=== PATIENT | male | born 1940 | race Caucasian/White ===

== ENCOUNTER → 2018-10-05 | Outpatient (CLI) | payer MEDICARE, OTHER ==
[2018-10-05 15:09] LABS: Creatinine, Urine Random 45.7 mg/dL (27.00-270.00)
[2018-10-05 15:12] LABS: Microalb/Creat Ratio UR, Rand 48.14 mg/g (0.000-30.000)
== END ==
LOC: LAB SHORT 07:45 → LAB SRC 07:45
PROVIDERS: Hospitalist
DX: I10 Essential (primary) hypertension (principal); R73.09 Other abnormal glucose
CPT/HCPCS: 82043; 82570

== ENCOUNTER → 2019-01-05 | Outpatient (CLI) | payer MEDICARE, OTHER ==
[2019-01-05 15:17] LABS: Campylobacter Sp Not Detected (NOT DETECT); Enteroaggregative E. coli-EAEC Not Detected (NOT DETECT); Enterotoxigenic E. coli-ETEC Not Detected (NOT DETECT); Plesiomonas Shigelloides Not Detected (NOT DETECT); Salmonella Sp Not Detected (NOT DETECT); Vibrio Cholerae Not Detected (NOT DETECT); Vibrio Sp Not Detected (NOT DETECT); Yersinia Enterocolitica Not Detected (NOT DETECT)
[2019-01-05 15:18] LABS: Adenovirus F 40/41 Not Detected (NOT DETECT); Astrovirus Not Detected (NOT DETECT); Cryptosporidium Not Detected (NOT DETECT); Cyclospora Cayetanensis Not Detected (NOT DETECT); E. Coli O157 Not Detected (NOT DETECT); Entamoeba Histolytica Not Detected (NOT DETECT); Enteropathogenic E. coli-EPEC Not Detected (NOT DETECT); Giardia Lamblia Not Detected (NOT DETECT); Norovirus GI/GII Not Detected (NOT DETECT); Rotavirus A Not Detected (NOT DETECT); Sapovirus Not Detected (NOT DETECT); Shiga Toxin-prod E. coli-STEC Not Detected (NOT DETECT); Shigella/Enteroin E. coli-EIEC Not Detected (NOT DETECT)
== END | disposition home or self-care (01) ==
LOC: LAB SRC 07:45 → LAB SHORT 07:45 → LAB FUT 12-31 14:30
PROVIDERS: Student in an Organized Health Care Education/Training Program
DX: R19.7 Diarrhea, unspecified (principal)
CPT/HCPCS: 0097U

== ENCOUNTER 2019-02-15 11:35 | Day surgery (SDC) | payer MEDICARE, OTHER ==
[~2019-02-15] VITALS: Ht 180.3 cm; Wt 99.7 kg
[~2019-02-15 11:35] MED LIST: Advil200 M1; HYDCHL25; LISI20; METO25ER
--- NOTE | 2019-02-15 13:12 | NUR ---
02/15/19 1312 Sigrid Tamayo SIMETHICONE USED DURING PROCEDURE.
--- NOTE | 2019-02-15 14:26 | NUR ---
02/15/[address] INTO ROOM TO CONSULT WITH PATIENT AND SPOUSE. EXPLAINED FINDINGS OF PROCEDURE, USING PHOTOS AND DRAWING DIAGRAM FOR PATIENT & SPOUSE. AFTER LEFT, THIS RN HAD INDEPT CONVERSATION WITH PATIENT AND SPOUSE REGARDING FINDINGS, EXPLAINING & CLARIFYING EXPLANATION & ANSWERED QUESTIONS. PT AND SPOUSE VERBALIZED UNDERSTANDING. SPOUSE ASKED IF STOOL SOFTENER WOULD BE APPROPRIATE. THIS RN CLARIFIED WITH DR. JAIMES WHOM SAID IT WOULD NOT HURT OR HINDER PATIENT, BUT DOUBTS BENEFITS UNTIL MASS IS DEALT WITH. PT AND SPOUSE APPEAR CALM AND DENY FURTHER QUESTIONS OR NEEDS AT THIS TIME.
== END 2019-02-15 14:20 | disposition home or self-care (01) ==
LOC: ORSCSDS 11:35
PROVIDERS: Student in an Organized Health Care Education/Training Program
PROC: 0DBK8ZX Excision of Ascending Colon, Via Natural or Artificial Opening Endoscopic, Diagnostic (ICD-10-PCS; principal; 2019-02-15 13:00)
PROC: 0DBN8ZX Excision of Sigmoid Colon, Via Natural or Artificial Opening Endoscopic, Diagnostic (ICD-10-PCS; principal; 2019-02-15 13:00)
PROC: 0DBM8ZX Excision of Descending Colon, Via Natural or Artificial Opening Endoscopic, Diagnostic (ICD-10-PCS; principal; 2019-02-15 13:00)
DX: R19.7 Diarrhea, unspecified (principal); D12.2 Benign neoplasm of ascending colon; D12.4 Benign neoplasm of descending colon; D12.5 Benign neoplasm of sigmoid colon; K57.30 Diverticulosis of large intestine without perforation or abscess without bleeding; Z87.891 Personal history of nicotine dependence; Z79.899 Other long term (current) drug therapy
CPT/HCPCS: 88305; J2250; J2704; J7120

== ENCOUNTER → 2019-08-27 | Outpatient (CLI) | payer MEDICARE, OTHER ==
[2019-08-27 14:09] LABS: Prothrombin Time Results 40.8 Sec (9.7-11.5)
[2019-08-27 14:17] LABS: International Normalized Ratio 4.13
== END | disposition home or self-care (01) ==
LOC: LAB SHORT 09:40 → LAB SRC 09:40
PROVIDERS: Hospitalist
DX: I48.91 Unspecified atrial fibrillation (principal)
CPT/HCPCS: 85610

== ENCOUNTER 2020-08-22 12:39 | Day surgery (SDC) | payer OTHER ==
[~2020-08-22] VITALS: Ht 180.3 cm; Wt 103.1 kg
[2020-08-22] MEDS ORDERED: WARF5 (13:18)
[2020-08-22] MEDS ORDERED: SINEMET 25-1001 EAC1 (13:18)
[2020-08-22] MEDS ORDERED: METO100 (13:18)
[2020-08-22] MEDS ORDERED: LANOXIN125 MCG (13:19)
--- NOTE | 2020-08-22 14:23 | NUR ---
08/22/20 1422 Katarzyna Bradley PT UPDATED ON THE DELAY IN HIS START TIME DUE TO THE PREVIOUS CASE RUNNING LONGER THAN EXPECTED. BED IN LOW, LOCKED POSITION, CALL LIGHT IN REACH. CONT TO MONITOR.
--- NOTE | 2020-08-22 15:57 | NUR ---
08/22/20 1557 Katarzyna Bradley PT DOES NOT NEED TO BE MAC WITH ANESTHESIA FOR FUTURE PROCEDURES PER MD HOFFMAN. HE HAD NO TROUBLES WITH BP OR SEDATION.
== END 2020-08-22 16:32 | disposition home or self-care (01) ==
LOC: ORSCSDS 12:39
PROVIDERS: Student in an Organized Health Care Education/Training Program
PROC: 0DBK8ZX Excision of Ascending Colon, Via Natural or Artificial Opening Endoscopic, Diagnostic (ICD-10-PCS; principal; 2020-08-22 14:00)
PROC: 0DBP8ZX Excision of Rectum, Via Natural or Artificial Opening Endoscopic, Diagnostic (ICD-10-PCS; principal; 2020-08-22 14:00)
PROC: 0DBH8ZX Excision of Cecum, Via Natural or Artificial Opening Endoscopic, Diagnostic (ICD-10-PCS; principal; 2020-08-22 14:00)
PROC: 0DBM8ZX Excision of Descending Colon, Via Natural or Artificial Opening Endoscopic, Diagnostic (ICD-10-PCS; principal; 2020-08-22 14:00)
DX: Z85.038 Personal history of other malignant neoplasm of large intestine (principal); R15.9 Full incontinence of feces; D12.2 Benign neoplasm of ascending colon; D12.0 Benign neoplasm of cecum; D12.4 Benign neoplasm of descending colon; D12.8 Benign neoplasm of rectum; I48.91 Unspecified atrial fibrillation; I10 Essential (primary) hypertension; K21.9 Gastro-esophageal reflux disease without esophagitis; G20 Parkinson's disease; Z79.899 Other long term (current) drug therapy; Z79.01 Long term (current) use of anticoagulants; Z87.891 Personal history of nicotine dependence
CPT/HCPCS: 88305; 93005; 93010; J2704; J7120

== ENCOUNTER 2021-06-05 06:32 | Emergency (ER) | payer OTHER ==
[~2021-06-05] VITALS: Ht 180.3 cm; Wt 99.8 kg
[~2021-06-05 06:32] MED LIST changes: +LANOXIN125 MCG PO; -LISI20; +LISI20 PO; +METO100 PO; +SINEMET 25-1001 EAC1; +WARF5
[2021-06-05] MEDS ORDERED: FURO20 PO (07:22)
[2021-06-05] MEDS ORDERED: POTA10T PO (07:23)
[2021-06-05] MEDS ORDERED: Coumadin2 MG PO (07:27)
[2021-06-05 08:02] LABS: International Normalized Ratio 2.32; Prothrombin Time Results 23.1 Sec (9.7-11.5)
[2021-06-05 08:07] LABS: Alanine Aminotransfer (ALT/SGP 39 U/L (12-78); Albumin, Blood 3.5 g/dL (3.4-5.0); Albumin/Globulin Ratio 0.9 (0.8-1.8); Alk Phos 83 U/L (50-136); Anion Gap 8 mmol/L (6-16); Aspartate Aminotrans (AST/SGOT 44 U/L (12-37); Blood Urea Nitrogen 20 mg/dL (8-24); Bun/Creatinine Ratio 21.1 (12.0-20.0); CO2, Blood 24 mmol/L (21-32); Calcium, Blood 9.2 mg/dL (8.5-10.1); Chloride, Blood 105 mmol/L (98-108); Creatinine, Blood 0.95 mg/dL (0.60-1.20); Globulin, Blood 3.8 g/dL (2.2-4.0); Glomerular Filtration Rate >60 (60-); Glucose, Blood 144 mg/dL (70-99); Potassium, Blood 4.3 mmol/L (3.5-5.5); Sodium, Blood 137 mmol/L (136-145); Total Protein, Blood 7.3 g/dL (6.4-8.2)
[2021-06-05 08:09] LABS: BASOPHILS ABSOLUTE AUTO 0.05 K/mm3 (0.00-0.23); BASOPHILS PERCENT AUTO 1 % (0-2); EOSINOPHILS ABSOLUTE AUTO 0.13 K/mm3 (0.00-0.68); EOSINOPHILS PERCENT AUTO 1 % (0-6); Hematocrit 44.2 % (37.0-53.0); Hemoglobin 14.9 g/dL (13.5-17.5); IMMATURE GRAN ABSOLUTE AUTO 0.08 K/mm3 (0.00-0.10); IMMATURE GRAN PERCENT AUTO 1 % (0-1); LYMPHOCYTES ABSOLUTE AUTO 2.78 K/mm3 (0.84-5.20); LYMPHOCYTES PERCENT AUTO 28 % (21-46); MONOCYTES ABSOLUTE AUTO 0.86 K/mm3 (0.16-1.47); MONOCYTES PERCENT AUTO 9 % (4-13); Mean Corpuscular HGB 30.8 pg (26.0-34.0); Mean Corpuscular HGB Conc 33.7 g/dL (31.5-36.5); Mean Corpuscular Volume 91 fL (80-100); Mean Platelet Volume 10.5 fL (9.1-12.4); NEUTROPHILS ABSOLUTE AUTO 6.18 K/mm3 (1.96-9.15); NEUTROPHILS PERCENT AUTO 61 % (41-73); Platelet Count 200 K/mm3 (150-400); RDW Coefficient Variation 13.3 % (11.7-14.2); RDW Standard Deviation 44.9 fL (35.1-46.3); Red Blood Cell Count 4.84 M/mm3 (4.30-5.90); White Blood Cell Count 10.08 K/mm3 (4.00-11.30)
[2021-06-05 08:29] LABS: Digoxin (Lanoxin) 0.65 ug/mL (0.80-2.00)
== END 2021-06-05 10:13 | disposition home or self-care (01) ==
LOC: ER 06:32
PROVIDERS: Emergency Medicine; Student in an Organized Health Care Education/Training Program
DX: K62.5 Hemorrhage of anus and rectum (principal); I48.91 Unspecified atrial fibrillation; Z79.899 Other long term (current) drug therapy
CPT/HCPCS: 80053; 80162; 85025; 85610; 93005; 93010; 99283-25

== ENCOUNTER 2022-02-13 18:50 | Inpatient (IN) | payer OTHER ==
[~2022-02-13] VITALS: Ht 177.8 cm; Wt 94.4 kg
[~2022-02-13 18:50] MED LIST changes: +Coumadin2 MG PO; +FURO20 PO; +POTA10T PO
[2022-02-13 19:21] LABS: BASOPHILS ABSOLUTE AUTO 0.04 K/mm3 (0.00-0.23); BASOPHILS PERCENT AUTO 0 % (0-2); EOSINOPHILS PERCENT AUTO 1 % (0-6); Hematocrit 43.7 % (37.0-53.0); IMMATURE GRAN ABSOLUTE AUTO 0.27 K/mm3 (0.00-0.10); IMMATURE GRAN PERCENT AUTO 2 % (0-1); LYMPHOCYTES ABSOLUTE AUTO 1.56 K/mm3 (0.84-5.20); LYMPHOCYTES PERCENT AUTO 9 % (21-46); MONOCYTES ABSOLUTE AUTO 0.89 K/mm3 (0.16-1.47); MONOCYTES PERCENT AUTO 5 % (4-13); Mean Corpuscular HGB 30.5 pg (26.0-34.0); Mean Corpuscular HGB Conc 34.3 g/dL (31.5-36.5); Mean Corpuscular Volume 89 fL (80-100); Mean Platelet Volume 10.7 fL (9.1-12.4); NEUTROPHILS ABSOLUTE AUTO 14.64 K/mm3 (1.96-9.15); NEUTROPHILS PERCENT AUTO 84 % (41-73); Platelet Count 164 K/mm3 (150-400); RDW Coefficient Variation 13.2 % (11.7-14.2); RDW Standard Deviation 43.2 fL (35.1-46.3); Red Blood Cell Count 4.92 M/mm3 (4.30-5.90)
[2022-02-13 19:33] LABS: Albumin, Blood 2.9 g/dL (3.4-5.0); Albumin/Globulin Ratio 0.7 (0.8-1.8); Bilirubin, Total 1.9 mg/dL (0.1-1.0); Calcium, Blood 8.8 mg/dL (8.5-10.1); Creatinine, Blood 1.6 mg/dL (0.60-1.20); Total Protein, Blood 6.9 g/dL (6.4-8.2)
[2022-02-13 19:53] LABS: Influenza A, PCR NEGATIVE (NEGATIVE); Influenza B, PCR NEGATIVE (NEGATIVE); Resp Syncytial Virus, PCR NEGATIVE (NEGATIVE); SARS-Cov-2 (COVID-19) PCR, MMC NEGATIVE (NEGATIVE)
[2022-02-13 21:03] LABS: Source, Urine Straight Cath
[2022-02-13 21:09] LABS: Appearance, Urine Hazy (Clear); Bilirubin, Urine Neg (Neg); Blood, Urine 5+ (Neg); Color, Urine Yellow (P-Yellow); Glucose Qualitative, Urine Neg (Neg); Ketones, Urine 2+ (Neg); Leukocyte Esterase, Urine 3+ (Neg); Nitrite, Urine Pos (Neg); Protein, Urine 3+ (Neg); Specific Gravity, Urine 1.015 (1.003-1.022); Urobilinogen, Urine 1+ (Normal)
[2022-02-13 21:39] LABS: Bacteria Many /hpf; Squamous Epithelial Cells Rare /hpf (Few); White Blood Cells, Urine 25-50 /hpf (0-5)
[2022-02-14 00:17] LABS: International Normalized Ratio 3.69; Prothrombin Time Results 35.6 Sec (9.7-11.5)
[2022-02-14 06:28] LABS: BASOPHILS ABSOLUTE AUTO 0.03 K/mm3 (0.00-0.23); BASOPHILS PERCENT AUTO 0 % (0-2); EOSINOPHILS PERCENT AUTO 0 % (0-6); Hematocrit 39.6 % (37.0-53.0); Hemoglobin 13.4 g/dL (13.5-17.5); IMMATURE GRAN ABSOLUTE AUTO 0.13 K/mm3 (0.00-0.10); IMMATURE GRAN PERCENT AUTO 1 % (0-1); LYMPHOCYTES ABSOLUTE AUTO 0.96 K/mm3 (0.84-5.20); LYMPHOCYTES PERCENT AUTO 8 % (21-46); MONOCYTES ABSOLUTE AUTO 0.56 K/mm3 (0.16-1.47); MONOCYTES PERCENT AUTO 5 % (4-13); Mean Corpuscular HGB 30.1 pg (26.0-34.0); Mean Corpuscular HGB Conc 33.8 g/dL (31.5-36.5); Mean Corpuscular Volume 89 fL (80-100); Mean Platelet Volume 10.8 fL (9.1-12.4); NEUTROPHILS ABSOLUTE AUTO 10.86 K/mm3 (1.96-9.15); NEUTROPHILS PERCENT AUTO 87 % (41-73); Platelet Count 152 K/mm3 (150-400); RDW Coefficient Variation 13.1 % (11.7-14.2); RDW Standard Deviation 42.9 fL (35.1-46.3); Red Blood Cell Count 4.45 M/mm3 (4.30-5.90); White Blood Cell Count 12.54 K/mm3 (4.00-11.30)
[2022-02-14 06:51] LABS: Albumin, Blood 2.4 g/dL (3.4-5.0); Albumin/Globulin Ratio 0.7 (0.8-1.8); Bilirubin, Total 1.4 mg/dL (0.1-1.0); Bun/Creatinine Ratio 20.7 (12.0-20.0); Creatinine, Blood 1.35 mg/dL (0.60-1.20); Globulin, Blood 3.6 g/dL (2.2-4.0); Potassium, Blood 3.5 mmol/L (3.5-5.5)
[2022-02-14] MEDS ORDERED: FLONASE ALLERG9.9 ML (11:25)
--- NOTE | 2022-02-14 18:45 | NUR ---
PCU ADMIT / END OF SHIFT NOTE PT BROUGHT TO PCU-15 BY ISAAC FROM ER @ APPROX 1115. PT A&O TO SELF, PLACE, & FAMILY AT BEDSIDE. PT ABLE TO STAND & WEAKLY AMBULATE FROM [facility] TO PCU BED W/ 2 PERSON ASSIST. PT VSS. SPO2 > 92% ON RA. MONITOR SHOWING AFIB, HR 80s-100 UPON ARRIVAL. HR TRENDING UP, NOW SHOWING 110s-130s. MD ANGELO NOTIFIED W/ MD ORDER TO CHANGE CURRENT DAILY PO METOPROLOL TO BID, SEE EMAR. PT DENYING PAIN/DISCOMFORT, N/V. PT INCONTINENT OF 2 LOOSE YELLOW/ORANGE STOOLS THIS SHIFT. PT REPORTING HAVING HAD DIARRHEA EVER SINCE PROCEDURE AFTER COLON CANCER. PT FORGETFUL OF HEALTH HISTORY, BUT AT BEDSIDE HELPING ASSIST W/ HX. PT W/ RED MARGARET ON R LEG & MULTIPLE BRUISES, PT REPORTS "I'VE BEEN FALLING A LOT OF LATELY." PT BED ALARM ON. WILL REPORT OFF TO ACCEPTING DAIRY BACTERIOLOGIST RN.
--- NOTE | 2022-02-15 05:15 | NUR ---
SHIFT SUMMARY PT IS A&OX3, HE IS NOT ORIENTED TO DATE/TIME. HE IS INC, Q2 TURN, HAS BEEN AFIB 90'S-120'S ON TELE, SP02 >90% ON ROOM AIR, AND HE HAS BEEN HYPERTENSIVE. HE DENIES ANGINA, SOB, N/V, AND PAIN. HE HAS BEEN ASLEEP MOST OF THE SHIFT AND CALLS APPROPRIATELY. BED ALARM ON, CALL LIGHT IN REACH, BED IN LOW. WILL CONTINUE TO MONITOR UNTIL SHIFT REPORT IS GIVEN TO THE ONCOMING SHIFT RN. SEE NOTES FOR ANY UPDATES.
[2022-02-15 06:03] LABS: BASOPHILS ABSOLUTE AUTO 0.03 K/mm3 (0.00-0.23); BASOPHILS PERCENT AUTO 0 % (0-2); EOSINOPHILS ABSOLUTE AUTO 0.01 K/mm3 (0.00-0.68); EOSINOPHILS PERCENT AUTO 0 % (0-6); Hematocrit 40.4 % (37.0-53.0); Hemoglobin 13.7 g/dL (13.5-17.5); IMMATURE GRAN ABSOLUTE AUTO 0.05 K/mm3 (0.00-0.10); IMMATURE GRAN PERCENT AUTO 1 % (0-1); LYMPHOCYTES ABSOLUTE AUTO 1.13 K/mm3 (0.84-5.20); LYMPHOCYTES PERCENT AUTO 11 % (21-46); MONOCYTES ABSOLUTE AUTO 0.62 K/mm3 (0.16-1.47); MONOCYTES PERCENT AUTO 6 % (4-13); Mean Corpuscular HGB 30.4 pg (26.0-34.0); Mean Corpuscular HGB Conc 33.9 g/dL (31.5-36.5); Mean Corpuscular Volume 90 fL (80-100); NEUTROPHILS PERCENT AUTO 82 % (41-73); Platelet Count 167 K/mm3 (150-400); RDW Coefficient Variation 13.3 % (11.7-14.2); White Blood Cell Count 9.94 K/mm3 (4.00-11.30)
[2022-02-15 06:20] LABS: International Normalized Ratio 2.93; Prothrombin Time Results 28.7 Sec (9.7-11.5)
[2022-02-15 06:40] LABS: Albumin, Blood 2.4 g/dL (3.4-5.0); Albumin/Globulin Ratio 0.6 (0.8-1.8); Bilirubin, Total 0.9 mg/dL (0.1-1.0); Bun/Creatinine Ratio 24.6 (12.0-20.0); Calcium, Blood 8.1 mg/dL (8.5-10.1); Creatinine, Blood 1.18 mg/dL (0.60-1.20); Globulin, Blood 3.9 g/dL (2.2-4.0); Potassium, Blood 3.7 mmol/L (3.5-5.5); Total Protein, Blood 6.3 g/dL (6.4-8.2)
--- NOTE | 2022-02-15 18:05 | NUR ---
END OF SHIFT NOTE PT A&O TO SELF, PLACE, & FAMILY. PT VSS. SPO2 > 92% ON RA. MONITOR SHOWING AFIB, HR 90s-110. HR ELEVATING UP TO 130s PRIOR TO MORNING & EVENING DOSE OF SCHEDULED PO METOPROLOL PER EMAR. HR THEN BACK TO 90s-110 AFTER MEDICATION. PT 2 PERSON ASSIST FOR OOB TRANSFERS THIS AM. PT NOW TOLERATING 1 PERSON ASSIST W/ FWW FOR OOB TRANSFERS. PT W/ EPISODES OF CONTINENCE & INCONTINENCE OF BOTH URINE & STOOL. PT WEARING ATTENDS &/OR USING BSC.
[2022-02-16 04:45] LABS: International Normalized Ratio 2.54; Prothrombin Time Results 25.1 Sec (9.7-11.5)
--- NOTE | 2022-02-16 05:46 | NUR ---
SHIFT SUMMARY PT A&O X 2 -3. PLEASANT DURING INTERACTIONS AND RESPONDING APPROPRIATELY TO QUESTIONS. FAMILY, AND SON, AT BEDSIDE AT BEGINNING OF SHIFT. VSS; SBP 120 - 130, HR 90 - 100'S, AFEBRILE, AND 02 SATS MAINTAINED ON RA. TOWARDS END OF THE SHIFT; HR BEGAN TO INCREASE TO 120 - 130'S W/MOVEMENT OTHERWISE MAINTAINED UNDER 110. PT DENIES CP, CHEST PRESSURE OR SOB. DENIES PAIN. DENIES N/V. PT STATES "HE FEELS BETTER THAN HE DID". PT HAD 2 SMALL TO MEDIUM INCONTINENT STOOLS THAT WERE LOOSE AND YELLOW/BROWN IN COLOR. PT ALSO HAD INCONTINENT SOILED ATTENDS D/T VOIDING. NO ACUTE CHANGES THROUGHOUT SHIFT. CALL LIGHT IN REACH AND PT USING WHEN APPROPRIATE AND TO VERBALIZE NEEDS.
--- NOTE | 2022-02-16 17:51 | NUR ---
END OF SHIFT NOTE / MEDICAL STATUS PT A&O TO SELF, PLACE, & FAMILY. VSS. SPO2 > 92% ON RA. MONITOR SHOWING AFIB, HR 90s-110s. PT W/ EPISODES OF INCONTINENCE, WEARING ATTENDS. PT MADE MEDICAL W/ TELE STATUS. NO EVENTS THIS SHIFT.
[2022-02-17 03:48] LABS: BASOPHILS ABSOLUTE AUTO 0.04 K/mm3 (0.00-0.23); BASOPHILS PERCENT AUTO 1 % (0-2); EOSINOPHILS ABSOLUTE AUTO 0.09 K/mm3 (0.00-0.68); EOSINOPHILS PERCENT AUTO 1 % (0-6); Hematocrit 39.2 % (37.0-53.0); Hemoglobin 13.4 g/dL (13.5-17.5); IMMATURE GRAN ABSOLUTE AUTO 0.25 K/mm3 (0.00-0.10); IMMATURE GRAN PERCENT AUTO 3 % (0-1); LYMPHOCYTES ABSOLUTE AUTO 1.13 K/mm3 (0.84-5.20); LYMPHOCYTES PERCENT AUTO 14 % (21-46); MONOCYTES ABSOLUTE AUTO 0.81 K/mm3 (0.16-1.47); MONOCYTES PERCENT AUTO 10 % (4-13); Mean Corpuscular HGB 30.4 pg (26.0-34.0); Mean Corpuscular HGB Conc 34.2 g/dL (31.5-36.5); Mean Corpuscular Volume 89 fL (80-100); Mean Platelet Volume 10.6 fL (9.1-12.4); NEUTROPHILS ABSOLUTE AUTO 5.88 K/mm3 (1.96-9.15); NEUTROPHILS PERCENT AUTO 72 % (41-73); Platelet Count 171 K/mm3 (150-400); RDW Coefficient Variation 13.2 % (11.7-14.2); RDW Standard Deviation 43.3 fL (35.1-46.3); Red Blood Cell Count 4.41 M/mm3 (4.30-5.90)
[2022-02-17 04:05] LABS: International Normalized Ratio 3.1; Prothrombin Time Results 30.2 Sec (9.7-11.5)
[2022-02-17 04:10] LABS: Albumin, Blood 2.2 g/dL (3.4-5.0); Albumin/Globulin Ratio 0.6 (0.8-1.8); Bilirubin, Total 0.7 mg/dL (0.1-1.0); Bun/Creatinine Ratio 19.4 (12.0-20.0); Calcium, Blood 7.8 mg/dL (8.5-10.1); Creatinine, Blood 0.88 mg/dL (0.60-1.20); Globulin, Blood 3.6 g/dL (2.2-4.0); Potassium, Blood 3.3 mmol/L (3.5-5.5); Total Protein, Blood 5.8 g/dL (6.4-8.2)
--- NOTE | 2022-02-17 05:23 | NUR ---
SHIFT SUMMARY PT A&0 X3 THROUGHOUT SHIFT; PLEASANT AND COOPERATIVE WITH CARE. FAMILY AT BEDSIDE FOR FIRST PART OF SHIFT. THIS RN ANSWERED QUESTIONS FOR FAMILY ABOUT POSSIBLE DISCHARGE TOMORROW, WELL PROVIDED EDUCATION ABOUT FWW USE AND SAFETY. FAMILY SEEMS A LITTLE ANXIOUS AND NERVOUS ABOUT ABILITY TO CARE FOR PT. THIS RN PROVIDED ENCOURAGEMENT AND SUPPORT, STATES " I JUST WANT TO BE ABLE TO PROVIDE GOOD CARE FOR HIM". THIS RN GOT PT UP TO USE BATHROOM W/REGULAR FWW TO SHOW FAMILY HOW TO USE. PT TOLERATED THIS VERY WELL AND NEEDED ONLY VERBAL CUES. AT START OF SHIFT THIS RN SAW CM SHE WAS COMING OUT OF PT'S ROOM; CM MENTIONED BARIATRIC FWW "SINCE THAT WHAT PT HAS IN HIS ROOM". BUT THIS RN ASSESSED PT USE OF REGULAR WALKER AND THINKS PT WILL DO FINE WITH THAT KIND. OTHERWISE; VSS. PT HR DID INCREASE 120 - 150'S EACH TIME HE WAS UP TO BATHROOM OR WITH MOVEMENT. PT DID NOT SUSTAIN THIS HR, BUT DID OCCUR FREQUENTLY. DENIES SOB, CP OR PRESSURE. BP STABLE. PT UP TP BATHROOM SEVERAL TIMES TO VOID AND PASS BM. PT ABLE TO VERBALIZE NEED TO USE BATHROOM; AT TIMES PT INCONTINENT. PT RESTED WELL THROUGHOUT SHIFT.
--- NOTE | 2022-02-17 08:00 | NUR ---
ASSUMED CARE PT A&O X4. SPO2 >92%; MAP >65. HR IN THE 80-90'S W/ A SMALL SUSTAIN IN THE 160-170'S AN A 4-5 BEAT RUN OF V-TACH. PT WAS ASYMPTOMATIC FOR BOTH EVENTS. NO C/O OF CP, SOB, OR NAUSEA. FLAT AFFECT.
--- NOTE | 2022-02-17 13:14 | NUR ---
DISCHARGE PT DISCHARGED AND EDUCATION GIVEN. QUESTIONS BY PT'S ANSWERED. PT DID NOT SEEM RECEPTIVE TO DISCHARGE INSTRUCTIONS/EDUCATION, BUT WAS ATTENTIVE AND ASKED QUESTIONS.
--- NOTE | 2022-02-17 13:18 | NUR ---
UPDATE POTASSIUM CHLORIDE HOME MED DC'D PER DR DURBIN.
== END 2022-02-17 13:32 | disposition home health service (06) | DRG 871 ==
LOC: ER 18:50 → ERHOLD 18:51 → PCU 18:51
PROVIDERS: Emergency Medicine; Internal Medicine; Internal Medicine Endocrinology, Diabetes & Metabolism; ADMIT Internal Medicine
DX: A41.51 Sepsis due to Escherichia coli [E. coli] (principal); G92.8 Other toxic encephalopathy; N17.9 Acute kidney failure, unspecified; N39.0 Urinary tract infection, site not specified; E87.1 Hypo-osmolality and hyponatremia; R65.20 Severe sepsis without septic shock; Z20.822 Contact with and (suspected) exposure to COVID-19; I48.91 Unspecified atrial fibrillation; G20 Parkinson's disease; F02.80 Dementia in other diseases classified elsewhere, unspecified severity, without behavioral disturbance, psychotic disturbance, mood disturbance, and anxiety; Z85.048 Personal history of other malignant neoplasm of rectum, rectosigmoid junction, and anus; Z93.2 Ileostomy status; Z90.49 Acquired absence of other specified parts of digestive tract; Z98.890 Other specified postprocedural states; Z87.891 Personal history of nicotine dependence; Z79.01 Long term (current) use of anticoagulants; Z79.899 Other long term (current) drug therapy
CPT/HCPCS: 0241U; 36415; 71045; 80053; 80162; 81001; 82550; 83605; 83735; 83880; 85025; 85610; 87040; 87077; 87086; 87186; 93005; 93010; 96365-59; 96375-59; 96376-59; 97162; 97530; 99285-25; A9270; J0696; J2405; J3475; J7030

== ENCOUNTER 2022-03-30 07:25 | Inpatient (IN) | payer OTHER ==
[~2022-03-30] VITALS: Ht 180.3 cm; Wt 78.0 kg
[~2022-03-30 07:25] MED LIST changes: +FLONASE ALLERG9.9 ML
[2022-03-30] MEDS ORDERED: MIRT15 PO (10:20)
[2022-03-30 12:50] LABS: Source, Urine Clean Catch
[2022-03-30 13:14] LABS: Appearance, Urine Cloudy (Clear); Bilirubin, Urine Neg (Neg); Blood, Urine 4+ (Neg); Color, Urine Yellow (P-Yellow); Glucose Qualitative, Urine Neg (Neg); Ketones, Urine Neg (Neg); Leukocyte Esterase, Urine 3+ (Neg); Nitrite, Urine Neg (Neg); Protein, Urine 2+ (Neg); Urobilinogen, Urine NORM (Normal)
[2022-03-30 13:47] LABS: White Blood Cells, Urine TNTC /hpf (0-5)
[2022-03-30 13:48] LABS: Bacteria Many /hpf; Squamous Epithelial Cells Rare /hpf (Few)
[2022-03-30 14:08] LABS: BASOPHILS ABSOLUTE AUTO 0.04 K/mm3 (0.00-0.23); BASOPHILS PERCENT AUTO 0 % (0-2); EOSINOPHILS ABSOLUTE AUTO 0.09 K/mm3 (0.00-0.68); EOSINOPHILS PERCENT AUTO 1 % (0-6); Hematocrit 40.5 % (37.0-53.0); Hemoglobin 13.9 g/dL (13.5-17.5); IMMATURE GRAN ABSOLUTE AUTO 0.09 K/mm3 (0.00-0.10); IMMATURE GRAN PERCENT AUTO 1 % (0-1); LYMPHOCYTES ABSOLUTE AUTO 2.35 K/mm3 (0.84-5.20); LYMPHOCYTES PERCENT AUTO 19 % (21-46); MONOCYTES ABSOLUTE AUTO 0.72 K/mm3 (0.16-1.47); MONOCYTES PERCENT AUTO 6 % (4-13); Mean Corpuscular HGB 29.7 pg (26.0-34.0); Mean Corpuscular HGB Conc 34.3 g/dL (31.5-36.5); Mean Corpuscular Volume 87 fL (80-100); Mean Platelet Volume 9.5 fL (9.1-12.4); NEUTROPHILS ABSOLUTE AUTO 9.01 K/mm3 (1.96-9.15); NEUTROPHILS PERCENT AUTO 73 % (41-73); Platelet Count 353 K/mm3 (150-400); RDW Coefficient Variation 13.2 % (11.7-14.2); RDW Standard Deviation 41.7 fL (35.1-46.3); Red Blood Cell Count 4.68 M/mm3 (4.30-5.90)
[2022-03-30 14:17] LABS: Albumin/Globulin Ratio 0.6 (0.8-1.8); Bilirubin, Total 0.7 mg/dL (0.1-1.0); Bun/Creatinine Ratio 48.8 (12.0-20.0); Calcium, Blood 8.9 mg/dL (8.5-10.1); Creatinine, Blood 1.64 mg/dL (0.60-1.20); Globulin, Blood 5.2 g/dL (2.2-4.0); Magnesium, Blood 1.6 mg/dL (1.6-2.4); Phosphorus, Blood 3.9 mg/dL (2.5-4.9); Potassium, Blood 5.5 mmol/L (3.5-5.5); Total Protein, Blood 8.2 g/dL (6.4-8.2)
[2022-03-30 14:24] LABS: Prothrombin Time Results 51.3 Sec (9.7-11.5)
[2022-03-30 14:38] LABS: International Normalized Ratio 5.46
[2022-03-30 16:00] LABS: Eosinophils-Raw #,Urine 0; White Blood Cells Urine TNTC /hpf (0-5)
--- NOTE | 2022-03-31 06:16 | NUR ---
A/OX4; CALM AND COOPERATIVE. DENIES PAIN AND DENIES FEELING NAUSEATED AT THIS TIME. SBA TO BSC. INC AT TIMES. LOOSE /LIQUID BMS; POSSIBLE BLOOD IN STOOL (PER GROUP TESTER - NOT VISUALIZED BY THIS RN; ORDER OBTAINED FOR OCCULT BLOOD TEST. IVF PER ORDERS SLEEP PROMOTED. CALL LIGHT IN REACH; ENCOURAGED TO MAKE NEEDS KNOWN. BED ALARM SET
[2022-03-31 09:01] LABS: BASOPHILS ABSOLUTE AUTO 0.04 K/mm3 (0.00-0.23); BASOPHILS PERCENT AUTO 0 % (0-2); EOSINOPHILS ABSOLUTE AUTO 0.06 K/mm3 (0.00-0.68); EOSINOPHILS PERCENT AUTO 1 % (0-6); Hematocrit 40.8 % (37.0-53.0); Hemoglobin 13.8 g/dL (13.5-17.5); IMMATURE GRAN ABSOLUTE AUTO 0.09 K/mm3 (0.00-0.10); IMMATURE GRAN PERCENT AUTO 1 % (0-1); LYMPHOCYTES ABSOLUTE AUTO 2.11 K/mm3 (0.84-5.20); LYMPHOCYTES PERCENT AUTO 22 % (21-46); MONOCYTES PERCENT AUTO 8 % (4-13); Mean Corpuscular HGB 29.6 pg (26.0-34.0); Mean Corpuscular HGB Conc 33.8 g/dL (31.5-36.5); Mean Corpuscular Volume 87 fL (80-100); Mean Platelet Volume 9.3 fL (9.1-12.4); NEUTROPHILS ABSOLUTE AUTO 6.45 K/mm3 (1.96-9.15); NEUTROPHILS PERCENT AUTO 68 % (41-73); Platelet Count 327 K/mm3 (150-400); RDW Coefficient Variation 13.3 % (11.7-14.2); RDW Standard Deviation 42.5 fL (35.1-46.3); Red Blood Cell Count 4.67 M/mm3 (4.30-5.90); White Blood Cell Count 9.55 K/mm3 (4.00-11.30)
[2022-03-31 09:22] LABS: Anion Gap 8 mmol/L (6-16); Blood Urea Nitrogen 55 mg/dL (8-24); Bun/Creatinine Ratio 49.1 (12.0-20.0); CO2, Blood 20 mmol/L (21-32); Calcium, Blood 9.1 mg/dL (8.5-10.1); Chloride, Blood 103 mmol/L (98-108); Creatinine, Blood 1.12 mg/dL (0.60-1.20); Glomerular Filtration Rate 66 (60-); Glucose, Blood 111 mg/dL (70-99); Potassium, Blood 4.9 mmol/L (3.5-5.5); Sodium, Blood 131 mmol/L (136-145); Uric Acid, Blood 8.4 mg/dL (3.5-7.2)
[2022-03-31 09:33] LABS: International Normalized Ratio 4.63
[2022-03-31 10:30] LABS: Stool Occult Blood Guaiac 1 Pos (Neg)
--- NOTE | 2022-03-31 18:39 | NUR ---
1500: Nurse called on vocera and let me know patient was yelling at his about leaving and is asking for me to come in and speak with about his behavior 1549: Tech made me aware of lower bp for patient. Pt has had soft bp since being admitted pt currently has fluids running at 75ml/hr. With a 73/59 map of 63. Will continue to monitor 1600: Call light on and pt is arguing and yelling with about not wanting to use the bedside commode. 1615: Physican called about patient behavior. Check emar for orders. 1700: Pt being transfer to room 351. Report given. 1730: Nurse called about low bp. made aware of low bp. 500ml bolus given.
--- NOTE | 2022-03-31 19:30 | NUR ---
NOTES: PATIENT TRANSFEERED FROM RM 6, ARRIVED TO AT 1745. PATIENT APPEARED VERY SLEEPY. FAMILY AT [facility]. THIS RN REVIEWED PATIENT VITALS AND NOTICED VITALS AT AROUND 1549 BP WAS 73/59 WITH HR OF 64 BPM. AT 1752 VITALS TAKEN; BP 66/48, HR 93 BPM. THIS RN CALLED ADRIANA MARCELINO RN WHO WAS TAKING CARE THE PATIENT PRIOR TO MOVING TO TRANSFERRING TO THIS RN'S CARE. PER ADRIANA SINCE SHE LNOWS THE PATIENT WELL, SHE WILL CALL DR. MANJARREZ REGARDING THIS ISSUE. ADRIANA WAS ABLE TO GET HOLD WITH THE DOCTOR AND RECEIVED ORDER TO INFUSED BULOS 500 MLS. THIS RN NOTIFIED LIDDING MACHINE OPERATOR REGARDING THE PATIENT CONDITION. THIS RN HAS BEEN MONITORING PATIENT VITAL SIGNS; AT 1806 TAKEN MANUALLY BP 58/44 R ARM, L ARM 64/48. AT 1819 68/48, HR 93. AT 1821 BP 71/52, HR 92. AT 1923 BP 80/56, HR 85. BEDSIDE REPORT GIVEN TO NOC RNHUANG.
[2022-04-01 05:30] LABS: BASOPHILS ABSOLUTE AUTO 0.04 K/mm3 (0.00-0.23); BASOPHILS PERCENT AUTO 1 % (0-2); EOSINOPHILS PERCENT AUTO 1 % (0-6); Hematocrit 33.6 % (37.0-53.0); Hemoglobin 11.5 g/dL (13.5-17.5); IMMATURE GRAN ABSOLUTE AUTO 0.05 K/mm3 (0.00-0.10); IMMATURE GRAN PERCENT AUTO 1 % (0-1); LYMPHOCYTES ABSOLUTE AUTO 2.11 K/mm3 (0.84-5.20); LYMPHOCYTES PERCENT AUTO 27 % (21-46); MONOCYTES ABSOLUTE AUTO 0.77 K/mm3 (0.16-1.47); MONOCYTES PERCENT AUTO 10 % (4-13); Mean Corpuscular HGB 29.8 pg (26.0-34.0); Mean Corpuscular HGB Conc 34.2 g/dL (31.5-36.5); Mean Corpuscular Volume 87 fL (80-100); Mean Platelet Volume 9.4 fL (9.1-12.4); NEUTROPHILS ABSOLUTE AUTO 4.79 K/mm3 (1.96-9.15); NEUTROPHILS PERCENT AUTO 61 % (41-73); Platelet Count 266 K/mm3 (150-400); RDW Coefficient Variation 13.5 % (11.7-14.2); RDW Standard Deviation 42.5 fL (35.1-46.3); Red Blood Cell Count 3.86 M/mm3 (4.30-5.90); White Blood Cell Count 7.86 K/mm3 (4.00-11.30)
[2022-04-01 05:50] LABS: International Normalized Ratio 5.54
[2022-04-01 05:52] LABS: Bun/Creatinine Ratio 38.4 (12.0-20.0); Calcium, Blood 8.4 mg/dL (8.5-10.1); Creatinine, Blood 1.12 mg/dL (0.60-1.20); Magnesium, Blood 1.3 mg/dL (1.6-2.4); Phosphorus, Blood 2.7 mg/dL (2.5-4.9); Potassium, Blood 4.8 mmol/L (3.5-5.5)
--- NOTE | 2022-04-01 06:00 | NUR ---
END OF SHIFT NURSING REPORT Mr Alba was admitted for acute renal failure, he was transfered to [facility] for acute behavioral episodes. He was found hypotensive upon arrival to [facility], NS 500 bolus was administered with positive results. He is AOX4, was leathergic begin of shift, back to baseline by Am. Out bed to use commode x1 stand by assist. X1 episode of GI bleed - moderate - declines pain - stool dark with obvious bloody clots. INR 5.54 this Am, Spoke with Dr Salazar - Hallie to continue monitoring and continue Warfarin Hold.
--- NOTE | 2022-04-01 14:01 | NUR ---
PER RN AND CM FAMILY HAS QUESTIONS ABOUT CURRENT POLST AND WISHEX TO MAKE CHANGES. FAMILY IS NO LONGER IN THE ROOM, CALL PLACED TO PT SPOUSE-NEERU. PLAN TO MEET TODAY WHEN SHE RETURNS THIS EVENING OR TOMORROW MORNING IN PT ROOM TO DISCUSS AND UPDATE POLST.
[2022-04-01 14:59] LABS: Hemoglobin 12.7 g/dL (13.5-17.5)
--- NOTE | 2022-04-01 16:33 | NUR ---
SHIFT SUMMARY PATIENT IS ALERT AND ORIENTED TO SELF, TIME, PLACE, AND SITUATION. PATIENT DID NOT HAVE ANY ACUTE EVENTS DURING THIS SHIFT. VITAL SIGNS REVIEWED. PATIENT WAS COMPLIANT WITH TAKING THEIR MEDICATIONS. NS INFUSING AT 75 MLS/HR IN THE RIGHT AC. THE PATIENT'S FAMILY DECLINED TO HAVE HIM WEAR A DNR WRISTBAND EVEN THOUGH THEY WERE AWARE OF THE DNR ORDERS. PATIENT'S FAMILY REQUESTED A MEETING WITH PALLIATIVE CARE TO CHANGE PATIENT'S CODE STATUS TO DNI, PALLIATIVE CARE MADE AWARE OF REQUEST BY OLAMIDE DURHAM. PATIENT HAS BEEN AMBULATING TO BATHROOM WITH MINIMAL ASSISTANCE, UTILIZING THEIR FOUR-WHEEL WALKER. PATIENT IS CONTINENT. WILL CONTINUE TO MONITOR UNTIL SHIFT CHANGE AND REPORT IS GIVEN TO DOUG RN.
--- NOTE | 2022-04-01 16:51 | NUR ---
SHIFT SUMMARY THE PATIENT IS ALERT AND ORIENTED TO SELF, TIME, PLACE, AND SITUATION. THE PATIENT WAS TRANSFERRED LAST NIGHT FROM ROOM 306 TO ROOM 351 DUE TO A CHANGE IN MENTAL STATUS. THE PATIENT WAS HYPOTENSIVE AND RECIEVED A FLUID BOLUS OF 500 MLS, WHICH CORRECTED THE HYPOTENSION. THE PATIENT'S MENTAL STATUS HAS IMPROVED ALSO SINCE THE HYPOTENSION WAS CORRECTED. THERE WERE NO ACUTE EVENTS THIS SHIFT.THE PATIENT'S FAMILY DECLINED TO HAVE HIM WEAR A DNR WRISTBAND AFTER THEY WERE MADE AWARE OF THE DNR ORDERS IN THE PATIENT'S CHART. THE FAMILY REQUESTED FOR A PALLIATIVE CARE CONSULT TO DISCUSS CHANGING THE PATIENT'S CODE STATUS TO DNI. PALLIATIVE CARE MADE AWARE BY OLAMIDE DURHAM. THE PATIENT HAS BEEN AMBULATING TO THE BATHROOM WITH HIS FOUR-WHEEL WALKER WITH MINIMAL ASSITANCE. THE PATIENT DOES NOT COMPLAIN OF PAIN OR SOB. THE PATIENT IS RECIEVING NS INFUSION AT 75 MLS/HR IN THE RIGHT AC. WILL CONTINUE TO MONITOR UNTIL SHIFT CHANGE WHEN REPORT HAS BEEN GIVEN TO NOC NURSE.
--- NOTE | 2022-04-01 17:22 | NUR ---
ATTEMPTED A VISIT WITH PT , SHE HAS NOT ARRIVED YET FOR HER EVENING VISIT WITH PT. SHE PANNED TO MAKE A VISIT BETWEEN [phone]. RN WILL CALL PALLIATIVE CARE WHEN SHE ARRIVES. PT IS RESTING COMF IN ROOM.
--- NOTE | 2022-04-01 17:23 | NUR ---
SHIFT SUMMARY THIS NURSE AGREES WITH STUDENT NURSES SHIFT SUMMARY AND SHIFT ASSESSMENT.
[2022-04-02 05:19] LABS: BASOPHILS ABSOLUTE AUTO 0.05 K/mm3 (0.00-0.23); BASOPHILS PERCENT AUTO 1 % (0-2); EOSINOPHILS ABSOLUTE AUTO 0.11 K/mm3 (0.00-0.68); EOSINOPHILS PERCENT AUTO 1 % (0-6); Hematocrit 33.7 % (37.0-53.0); Hemoglobin 11.5 g/dL (13.5-17.5); IMMATURE GRAN ABSOLUTE AUTO 0.06 K/mm3 (0.00-0.10); IMMATURE GRAN PERCENT AUTO 1 % (0-1); LYMPHOCYTES ABSOLUTE AUTO 2.58 K/mm3 (0.84-5.20); LYMPHOCYTES PERCENT AUTO 27 % (21-46); MONOCYTES ABSOLUTE AUTO 0.83 K/mm3 (0.16-1.47); MONOCYTES PERCENT AUTO 9 % (4-13); Mean Corpuscular HGB 29.7 pg (26.0-34.0); Mean Corpuscular HGB Conc 34.1 g/dL (31.5-36.5); Mean Corpuscular Volume 87 fL (80-100); Mean Platelet Volume 9.3 fL (9.1-12.4); NEUTROPHILS PERCENT AUTO 62 % (41-73); Platelet Count 250 K/mm3 (150-400); RDW Coefficient Variation 13.7 % (11.7-14.2); RDW Standard Deviation 43.7 fL (35.1-46.3); Red Blood Cell Count 3.87 M/mm3 (4.30-5.90); White Blood Cell Count 9.43 K/mm3 (4.00-11.30)
[2022-04-02 05:47] LABS: Albumin, Blood 2.4 g/dL (3.4-5.0); Albumin/Globulin Ratio 0.6 (0.8-1.8); Bilirubin, Total 0.4 mg/dL (0.1-1.0); Bun/Creatinine Ratio 29.7 (12.0-20.0); Calcium, Blood 8.4 mg/dL (8.5-10.1); Creatinine, Blood 0.98 mg/dL (0.60-1.20); Globulin, Blood 3.9 g/dL (2.2-4.0); Potassium, Blood 4.5 mmol/L (3.5-5.5); Total Protein, Blood 6.3 g/dL (6.4-8.2)
--- NOTE | 2022-04-02 06:00 | NUR ---
END OF SHIFT NURSING REPORT Mr Alba was admitted for acute renal failure and elevated INR 8.7. He is AOX4, stayed with him until 2029. Patient is convinced he is going home in the morning even agter being convinced otherwise. He continues to have red-bloody stool, X3 through the night, Am hgb is 11.5. He ambulates to commode x1 assist with rolling walker. Warfarin continues on hold per .
[2022-04-02 10:47] LABS: International Normalized Ratio 3.34; Prothrombin Time Results 32.4 Sec (9.7-11.5)
[2022-04-02] MEDS ORDERED: MEGE40T PO (16:07)
[2022-04-02] MEDS ORDERED: TAMS.4ER PO (16:07)
[2022-04-02] MEDS ORDERED: AMOCLA875 PO (16:08)
--- NOTE | 2022-04-02 16:24 | NUR ---
Discharge Summary A/Ox4, cooperative. SBA with FWW to bathroom. Up in chair for most of day. Good appetite. Discharging home. Reviewed d/c papers with patient and family at bedside. No questions at this time. Copy given. Meds faxed to [facility]. Escorted by COURTESY CAR DRIVER via w/c. Personal belongings sent home.
[2022-04-05 15:10] LABS: 25-HYDROXY, VITAMIN D 22 ng/mL (.); 25-HYDROXY, VITAMIN D-2 <1.0 ng/mL (.); 25-HYDROXY, VITAMIN D-3 22 ng/mL (.)
== END 2022-04-02 16:25 | disposition home health service (06) | DRG 872 ==
LOC: MEDS 07:25
PROVIDERS: Family Medicine; Internal Medicine; ADMIT Hospitalist
DX: A41.51 Sepsis due to Escherichia coli [E. coli] (principal); N17.9 Acute kidney failure, unspecified; I48.20 Chronic atrial fibrillation, unspecified; N13.6 Pyonephrosis; E44.0 Moderate protein-calorie malnutrition; K92.2 Gastrointestinal hemorrhage, unspecified; R63.0 Anorexia; E11.9 Type 2 diabetes mellitus without complications; Z66 Do not resuscitate; I10 Essential (primary) hypertension; M51.9 Unspecified thoracic, thoracolumbar and lumbosacral intervertebral disc disorder; N13.9 Obstructive and reflux uropathy, unspecified; G20 Parkinson's disease; E86.0 Dehydration; R33.9 Retention of urine, unspecified; K52.9 Noninfective gastroenteritis and colitis, unspecified; R79.1 Abnormal coagulation profile; M16.10 Unilateral primary osteoarthritis, unspecified hip; Z98.52 Vasectomy status; Z98.890 Other specified postprocedural states; Z86.79 Personal history of other diseases of the circulatory system; Z79.01 Long term (current) use of anticoagulants; Z93.2 Ileostomy status; Z88.8 Allergy status to other drugs, medicaments and biological substances; Z79.899 Other long term (current) drug therapy; Z85.048 Personal history of other malignant neoplasm of rectum, rectosigmoid junction, and anus; Z86.010 Personal history of colon polyps; Z90.49 Acquired absence of other specified parts of digestive tract
CPT/HCPCS: 36415; 74176; 76770; 80048; 80053; 81001; 82272; 82306; 82436; 82533; 82550; 83605; 83735; 83880; 84100; 84300; 84484; 84550; 85014; 85018; 85025; 85610; 87040; 87077; 87086; 87186; 87205; 97110; 97116; 97162; 97530; A9270; G0103; J0696; J7030; J7040

== ENCOUNTER 2022-07-13 21:19 | Inpatient (IN) | payer OTHER ==
[~2022-07-13] VITALS: Ht 180.3 cm; Wt 85.8 kg
[~2022-07-13 21:19] MED LIST changes: +AMOCLA875 PO; +MEGE40T PO; +MIRT15 PO; +TAMS.4ER PO
[2022-07-13 21:45] LABS: Source, Urine Foley catheter
[2022-07-13 21:48] LABS: BASOPHILS ABSOLUTE AUTO 0.06 K/mm3 (0.00-0.23); BASOPHILS PERCENT AUTO 0 % (0-2); EOSINOPHILS ABSOLUTE AUTO 0.03 K/mm3 (0.00-0.68); EOSINOPHILS PERCENT AUTO 0 % (0-6); Hematocrit 39.6 % (37.0-53.0); Hemoglobin 13.2 g/dL (13.5-17.5); IMMATURE GRAN ABSOLUTE AUTO 0.21 K/mm3 (0.00-0.10); IMMATURE GRAN PERCENT AUTO 1 % (0-1); LYMPHOCYTES ABSOLUTE AUTO 1.62 K/mm3 (0.84-5.20); LYMPHOCYTES PERCENT AUTO 6 % (21-46); MONOCYTES PERCENT AUTO 1 % (4-13); Mean Corpuscular HGB 30.6 pg (26.0-34.0); Mean Corpuscular HGB Conc 33.3 g/dL (31.5-36.5); Mean Corpuscular Volume 92 fL (80-100); NEUTROPHILS ABSOLUTE AUTO 26.35 K/mm3 (1.96-9.15); NEUTROPHILS PERCENT AUTO 92 % (41-73); Platelet Count 218 K/mm3 (150-400); RDW Coefficient Variation 13.5 % (11.7-14.2); RDW Standard Deviation 46.1 fL (35.1-46.3); Red Blood Cell Count 4.31 M/mm3 (4.30-5.90); White Blood Cell Count 28.57 K/mm3 (4.00-11.30)
[2022-07-13 21:50] LABS: Bilirubin, Urine Neg (Neg); Blood, Urine 4+ (Neg); Glucose Qualitative, Urine Neg (Neg); Ketones, Urine 1+ (Neg); Leukocyte Esterase, Urine 3+ (Neg); Nitrite, Urine Pos (Neg); Protein, Urine 3+ (Neg); Specific Gravity, Urine 1.015 (1.003-1.022); Urobilinogen, Urine NORM (Normal)
[2022-07-13 21:53] LABS: Appearance, Urine Turbid (Clear); Color, Urine Yellow (P-Yellow)
[2022-07-13 21:59] LABS: Bacteria Many /hpf; Squamous Epithelial Cells Not Seen /hpf (Few); White Blood Cells, Urine TNTC /hpf (0-5)
[2022-07-13 22:09] LABS: Albumin, Blood 2.6 g/dL (3.4-5.0); Albumin/Globulin Ratio 0.8 (0.8-1.8); Bilirubin, Direct 0.3 mg/dL (0.0-0.3); Bilirubin, Indirect 0.8 mg/dL (0.1-0.7); Bilirubin, Total 1.1 mg/dL (0.1-1.0); Bun/Creatinine Ratio 17.7 (12.0-20.0); Calcium, Blood 8.4 mg/dL (8.5-10.1); Creatinine, Blood 1.58 mg/dL (0.60-1.20); Globulin, Blood 3.3 g/dL (2.2-4.0); Magnesium, Blood 1.7 mg/dL (1.6-2.4); Phosphorus, Blood 1.1 mg/dL (2.5-4.9); Total Protein, Blood 5.9 g/dL (6.4-8.2)
[2022-07-13 22:36] LABS: International Normalized Ratio 2.69; Prothrombin Time Results 26.7 Sec (9.7-11.5)
[2022-07-13 22:37] LABS: Influenza A, PCR NEGATIVE (NEGATIVE); Influenza B, PCR NEGATIVE (NEGATIVE); Resp Syncytial Virus, PCR NEGATIVE (NEGATIVE); SARS-Cov-2 (COVID-19) PCR, MMC NEGATIVE (NEGATIVE)
[2022-07-13 23:43] LABS: Base Excess Venous -12.3 mmol/L; Bicarbonate Venous 14.7 mmol/L (24.0-30.0); PCO2 Venous 39.2 mmHg (38-42); pH Blood Venous 7.21 (7.34-7.37)
[2022-07-14] VITALS (49 sets, daily range): BP systolic 79–130; BP diastolic 57–109
[2022-07-14 00:43] LABS: Anti-Xa UFH, PHA Monitoring <0.10 IU/mL
--- NOTE | 2022-07-14 02:30 | NUR ---
ADMISSION NOTE PT ARRIVED TO ICU ROOM 3 VIA STRETCHER FROM ER AT 0207. PT IS ALERT AND ORIENTED TO SELF AND PLACE. HE IS ON ROOM AIR OXYGEN SAT >90%. HE HAS A RIGHT IJ CVL QUAD LUMEN THAT WAS PLACED IN THE ER. HE IS ON LEVOPHED AT 25MCGS, MAP > THAN 65 AT THIS TIME. HE HAS A TEMP CAMACHO THAT WAS ALSO PLACED IN THE ER. HE IS AFIB ON THE TOWER ERECTOR W/RATE 110-120S. HE HAS KPHOS INFUSING WELL NS BOLUS AT 500MLHR. HE DENIES ANY PAIN AT THE CURRENT TIME. HE HAS A TREMOR THAT IS NOT NEW W/A PRE-EXISTING DIAGNOSIS OF PARKINSONS DISEASE.
[2022-07-14 05:33] LABS: Hemoglobin 12.7 g/dL (13.5-17.5); Mean Corpuscular HGB 30.8 pg (26.0-34.0); Mean Corpuscular HGB Conc 33.4 g/dL (31.5-36.5); Mean Corpuscular Volume 92 fL (80-100); Mean Platelet Volume 10.5 fL (9.1-12.4); Platelet Count 264 K/mm3 (150-400); RDW Standard Deviation 47.8 fL (35.1-46.3); Red Blood Cell Count 4.12 M/mm3 (4.30-5.90)
[2022-07-14 05:50] LABS: White Blood Cell Count 55.86 K/mm3 (4.00-11.30)
[2022-07-14 05:52] LABS: BAND PERCENT MAN 16 % (0-8); BASOPHILS PERCENT MAN 0 % (0-2); EOSINOPHILS PERCENT MAN 0 % (0-6); LYMPHOCYTES ABSOLUTE MAN 3.35 K/mm3 (0.84-5.20); LYMPHOCYTES PERCENT MAN 6 % (21-46); METAMYELOCYTE ABSOLUTE MAN 0.55 K/mm3 (0.00-0.00); METAMYELOCYTE PERCENT MAN 1 % (0-0); MONOCYTES ABSOLUTE MAN 2.79 K/mm3 (0.16-1.47); MONOCYTES PERCENT MAN 5 % (4-13); NEUTROPHILS ABSOLUTE MAN 49.15 K/mm3 (1.96-9.15); SEG NEUTROPHILS PERCENT MAN 72 % (41-73); TOTAL CELLS COUNTED 100
[2022-07-14 06:03] LABS: Albumin, Blood 2.2 g/dL (3.4-5.0); Albumin/Globulin Ratio 0.7 (0.8-1.8); Bilirubin, Total 0.8 mg/dL (0.1-1.0); Calcium, Blood 7.5 mg/dL (8.5-10.1); Creatinine, Blood 1.42 mg/dL (0.60-1.20); Globulin, Blood 3.1 g/dL (2.2-4.0); Magnesium, Blood 1.6 mg/dL (1.6-2.4); Potassium, Blood 4.8 mmol/L (3.5-5.5); Total Protein, Blood 5.3 g/dL (6.4-8.2)
--- NOTE | 2022-07-14 06:28 | NUR ---
SHIFT SUMMERY PT HAS HAD NO ACUTE CHANGES OVERNIGHT. LEVOPHED HAS BEEN DECREASED FROM 25 TO 10MCGS THROUGHOUT THE SHIFT W/PT MAINTAINING A MAP >65. HE IS AFIB ON THE IMAGING SCIENCE PROFESSOR RATE 110S-130S. HE HAS NO COMPLAINTS OF PAIN AND NO ACUTE DISTRESS OVERNIGHT. HE IS ON ROOM AIR W/OXYGEN SAT >95%. HEPARIN INFUSING AT 15UNITS PER ORDER.
--- NOTE | 2022-07-14 07:56 | NUR ---
AM NOTE... ASSUMED CARE OF PT AT 0700. PT IS A&Ox3 UNABLE TO STATE THE DATE BUT ABLE TO STATE HIS NAME, AND WHERE HE IS AT. HE IS ON LEVOPHED AT 10MCG/MIN TO KEEP MAPS >65. HE IS IN AFIB IN THE 100'S-120'S. TRACE EDEMA IS NOTED TO HIS BLE. HE IS ON RA WITH O2 SATS >92% L/S CLEAR T/O. BT PRESENT AND HYPOACTIVE, ABD SOFT AND NONTENDER TO PALPATION. TEMP CAMACHO IS IN PLACE AND DRAINING ARACELI URINE TO GRAVITY. CURRENT TEMP IS 99.6. PT DENIES ANY PAIN AT THIS TIME. HEPARIN GTT IS RUNNING AT 15U/KG/HR PER ORDERS. WILL CONTINUE TO MONITOR.
--- NOTE | 2022-07-14 08:02 | NUR ---
AM NOTE... ASSUMED CARE OF PT AT 0700. PT RESTING COMFORTABLY IN BED. PT IS IN AFIB WITH A HR IN THE 110'S-120'S AND SYSTOLIC HAS BEEN RANGING FROM THE 80'S TO 110'S. HE IS ON RA SATURATING >92% HIS CURRENT TEMP IS 99.6 AND HE WAS GIVEN TYLENOL. PT IS A&O X3. HE IS CURRENTLY ON LEVOPHED AT 10MCG/MIN. HEPARIN DRIP IS RUNNING AT 15U/KG/HR. HE HAS A TEMP CAMACHO IN PLACE DRAINING ARACELI URINE TO GRAVITY. LUNG SOUNDS ARE CLEAR THROUGHOUT. TRACE EDEMA IS PRESENT TO BLE. CALL LIGHT IS IN PLACE. WILL CONTINUE TO MONITOR.
--- NOTE | 2022-07-14 14:39 | NUR ---
PT TRANSFER TO [facility].... PT TRANSFER TO [facility] VIA AMBULANCE AT 1425. PT WAS ON LEVOPHED AT 8MCG/MIN AND LR RUNNING AT 100MLS/HR. HEPARIN DRIP WAS STOPPED PER RECEVING ICU PROVIDER PER PJ ROUGHER OPERATOR WHO THIS RN GAVE REPORT TO. PT WAS IN AFIB IN THE 110'S. LEVOPHED GTT AT 8MCG/MIN WITH MAPS >65. CAMACHO IS PATENT AND DRAINING TO GRAVITY. ALL OF PT'S BELONGINGS WERE TAKEN BY THE WHO WAS AT THE BEDSIDE. REPORT ALSO GIVEN TO EMS STAFF.
== END 2022-07-14 14:34 | disposition short-term general hospital (02) | DRG 871 ==
LOC: ER 21:19 → ICUE 23:27 → ICUW 23:27 → ICUE 23:27
PROVIDERS: Emergency Medicine; Student in an Organized Health Care Education/Training Program; ADMIT Student in an Organized Health Care Education/Training Program
PROC: 02HV33Z Insertion of Infusion Device into Superior Vena Cava, Percutaneous Approach (ICD-10-PCS; principal; 2022-07-13)
PROC: B548ZZA Ultrasonography of Superior Vena Cava, Guidance (ICD-10-PCS; 2022-07-13)
PROC: 3E033XZ Introduction of Vasopressor into Peripheral Vein, Percutaneous Approach (ICD-10-PCS; 2022-07-13)
PROC: 3E03329 Introduction of Other Anti-infective into Peripheral Vein, Percutaneous Approach (ICD-10-PCS; 2022-07-13)
PROC: 0T9B70Z Drainage of Bladder with Drainage Device, Via Natural or Artificial Opening (ICD-10-PCS; 2022-07-13)
DX: A41.9 Sepsis, unspecified organism (principal); G93.41 Metabolic encephalopathy; R65.21 Severe sepsis with septic shock; J18.9 Pneumonia, unspecified organism; N17.9 Acute kidney failure, unspecified; E87.20 Acidosis, unspecified; N39.0 Urinary tract infection, site not specified; I48.20 Chronic atrial fibrillation, unspecified; N13.1 Hydronephrosis with ureteral stricture, not elsewhere classified; Z20.822 Contact with and (suspected) exposure to COVID-19; Z66 Do not resuscitate; E11.9 Type 2 diabetes mellitus without complications; K57.30 Diverticulosis of large intestine without perforation or abscess without bleeding; E83.39 Other disorders of phosphorus metabolism; G20 Parkinson's disease; Z85.048 Personal history of other malignant neoplasm of rectum, rectosigmoid junction, and anus; Z96.652 Presence of left artificial knee joint; Z90.49 Acquired absence of other specified parts of digestive tract; Z87.891 Personal history of nicotine dependence; Z93.2 Ileostomy status; Z98.890 Other specified postprocedural states; Z79.2 Long term (current) use of antibiotics; Z79.01 Long term (current) use of anticoagulants; Z79.899 Other long term (current) drug therapy
CPT/HCPCS: 0241U; 36415; 36556; 51702; 71045; 74176; 80053; 81001; 82248; 82803; 83605; 83735; 84100; 85025; 85520; 85610; 85730; 87040; 87076; 87077; 87086; 87186; 93005; 93010; 96361-59; 96365-59; 96366-59; 96368; 96375-59; 99285-25; A9270; C1751; J0696; J1644; J1956; J3370; J7030; J7050; J7060; J7120

== ENCOUNTER 2022-12-11 08:01 | Day surgery (SDC) | payer OTHER ==
[~2022-12-11] VITALS: Ht 180.3 cm; Wt 73.0 kg
[2022-12-11 08:23] VITALS: BP 109/70
[2022-12-11] MEDS ORDERED: Flonase 0.05% N16 GM (08:42)
[2022-12-11] MEDS ORDERED: DIGOX125 MC1 PO (08:42)
[2022-12-11] MEDS ORDERED: THERA-D2000 UNIT PO (08:42)
[2022-12-11] MEDS ORDERED: IBUP200 PO (08:43)
[2022-12-11] MEDS ORDERED: FURO20 PO (08:43)
[2022-12-11] MEDS ORDERED: METO50ER PO (08:43)
[2022-12-11] MEDS ORDERED: POTA10T PO (08:44)
[2022-12-11] MEDS ORDERED: WARF1 (08:45)
[2022-12-11 12:06] VITALS: BP 110/72
--- NOTE | 2022-12-11 12:06 | NUR ---
PT AND S/O VERBALIZES UNDERSTANDING WRITTEN INSTRUCTIONS. DENIES QUESTIONS. VSS. NADN. PT L FLANK SITE C/D/I. PT IV DC'D. CATH INTACT. PT DRESSES SELF WITHOUT DIFF. PT WILL BE DC TO HOME VIA WC BY S/O
--- NOTE | 2022-12-11 12:25 | NUR ---
PATIENT DISCHARGED HOME AT 1225. PATIENT WHEELED TO HOSPITAL ENTRANCE AND FAMILY ABLE TO PROVIDE TRANSPORATION HOME. L NEPH TUBE SITE C/D/I, NO EVIDENCE OF BLEEDING. ALL PATIENT BELONGINGS AND PAPERWORK LEFT WITH PATIENT.
== END 2022-12-11 12:25 | disposition home or self-care (01) ==
LOC: MHTC 08:01
DX: Z43.6 Encounter for attention to other artificial openings of urinary tract (principal); N13.4 Hydroureter; I48.20 Chronic atrial fibrillation, unspecified; G20.A1 Parkinson's disease without dyskinesia, without mention of fluctuations; Z79.01 Long term (current) use of anticoagulants; Z87.891 Personal history of nicotine dependence
CPT/HCPCS: 50435; C1769; J7050; Q9967

== ENCOUNTER 2023-03-27 08:00 | Day surgery (SDC) | payer OTHER ==
[~2023-03-27] VITALS: Ht 180.3 cm; Wt 75.0 kg
[~2023-03-27 08:00] MED LIST changes: +DIGOX125 MC1 PO; +Flonase 0.05% N16 GM; +IBUP200 PO; +METO50ER PO; +THERA-D2000 UNIT PO; +WARF1
[2023-03-27] MEDS ORDERED: WARF1 PO (08:32)
[2023-03-27 08:38] VITALS: BP 114/76
[2023-03-27 08:59] VITALS: BP 114/76
[2023-03-27 10:57] VITALS: BP 123/105
[2023-03-27 11:00] VITALS: BP 111/76
--- NOTE | 2023-03-27 11:23 | NUR ---
site clean and clear and draining properly. pt given dc instructions and verbalized understanding. iv out. pt chnaged. pt taken to [facility] via wc. family to take pt home.
== END 2023-03-27 11:49 | disposition home or self-care (01) ==
LOC: MHTC 08:00
DX: Z93.6 Other artificial openings of urinary tract status (principal); N13.4 Hydroureter; I10 Essential (primary) hypertension; E11.9 Type 2 diabetes mellitus without complications; I48.20 Chronic atrial fibrillation, unspecified; Z87.891 Personal history of nicotine dependence; Z79.01 Long term (current) use of anticoagulants; Z79.899 Other long term (current) drug therapy
CPT/HCPCS: 50435; C1729; C1769; J7050; Q9967

== ENCOUNTER 2023-06-21 16:19 | Inpatient (IN) | payer OTHER ==
[~2023-06-21] VITALS: Ht 180.3 cm; Wt 76.3 kg
[~2023-06-21 16:19] MED LIST changes: +WARF1 PO
[2023-06-21] MEDS ORDERED: NS 1,000 ML IV SCH ×2 (17:00→22:00)
[2023-06-21 17:15] LABS: BASOPHILS ABSOLUTE AUTO 0.03 K/mm3 (0.00-0.23); BASOPHILS PERCENT AUTO 0 % (0-2); EOSINOPHILS PERCENT AUTO 0 % (0-6); Hematocrit 35.5 % (37.0-53.0); Hemoglobin 11.6 g/dL (13.5-17.5); IMMATURE GRAN ABSOLUTE AUTO 0.07 K/mm3 (0.00-0.10); IMMATURE GRAN PERCENT AUTO 0 % (0-1); LYMPHOCYTES ABSOLUTE AUTO 1.41 K/mm3 (0.84-5.20); LYMPHOCYTES PERCENT AUTO 9 % (21-46); MONOCYTES ABSOLUTE AUTO 1.42 K/mm3 (0.16-1.47); MONOCYTES PERCENT AUTO 9 % (4-13); Mean Corpuscular HGB 28.4 pg (26.0-34.0); Mean Corpuscular HGB Conc 32.7 g/dL (31.5-36.5); Mean Corpuscular Volume 87 fL (80-100); Mean Platelet Volume 10.8 fL (9.1-12.4); NEUTROPHILS ABSOLUTE AUTO 13.08 K/mm3 (1.96-9.15); NEUTROPHILS PERCENT AUTO 82 % (41-73); Platelet Count 251 K/mm3 (150-400); RDW Coefficient Variation 16.1 % (11.7-14.2); RDW Standard Deviation 51.1 fL (35.1-46.3); Red Blood Cell Count 4.08 M/mm3 (4.30-5.90); White Blood Cell Count 16.01 K/mm3 (4.00-11.30)
[2023-06-21 17:31] LABS: Albumin, Blood 2.8 g/dL (3.4-5.0); Albumin/Globulin Ratio 0.8 (0.8-1.8); Bilirubin, Total 1.5 mg/dL (0.1-1.0); Bun/Creatinine Ratio 28.4 (12.0-20.0); Calcium, Blood 8.7 mg/dL (8.5-10.1); Creatinine, Blood 0.92 mg/dL (0.60-1.20); Globulin, Blood 3.7 g/dL (2.2-4.0); Potassium, Blood 3.8 mmol/L (3.5-5.5); Total Protein, Blood 6.5 g/dL (6.4-8.2)
[2023-06-21 18:14] LABS: Source, Urine Clean Catch
[2023-06-21 18:18] LABS: Appearance, Urine Clear (Clear); Bilirubin, Urine Neg (Neg); Blood, Urine Neg (Neg); Color, Urine Yellow (P-Yellow); Glucose Qualitative, Urine Neg (Neg); Ketones, Urine Neg (Neg); Leukocyte Esterase, Urine 2+ (Neg); Nitrite, Urine Neg (Neg); Protein, Urine 1+ (Neg); Urobilinogen, Urine NORM (Normal)
[2023-06-21 18:26] LABS: Bacteria Few /hpf; Red Blood Cells, Urine Not Seen /hpf (0-2); Squamous Epithelial Cells Not Seen /hpf (Few)
[2023-06-21] MEDS ORDERED: CefTRIAXone Sodium 1,000 MG in NS 100 ML IV ONE (19:35)
[2023-06-21] MEDS ORDERED: Fluticasone 0.05% Nasal Spray PRN (22:00)
[2023-06-21] MEDS ORDERED: Ondansetron HCl 2 MG / ML 2ML Vial IV PRN (22:00)
[2023-06-21] MEDS ORDERED: Acetaminophen 650 MG Supp PR PRN (22:00)
[2023-06-21 22:37] LABS: International Normalized Ratio 1.15; Prothrombin Time Results 12.2 Sec (9.7-11.5)
[2023-06-21] MEDS ORDERED: Metoprolol Succinate 50 MG TABCR PO SCH (23:00)
[2023-06-21] MEDS ORDERED: Warfarin Sodium 5 MG Tab PO ONE (23:00)
[2023-06-21] MEDS ORDERED: Ibuprofen 400 MG Tab PO PRN (23:25)
[2023-06-22 00:33] VITALS: BP 118/77
[2023-06-22 04:02] VITALS: BP 109/72
--- NOTE | 2023-06-22 04:48 | NUR ---
NEW ADMIT/SHIFT SUMMARY PT ARRIVED TO ROOM AT 0003. REPORT RCVD FROM IN ED. PT IS A/OX4. VISIBLE TREMORS. PT REPORTS HE USES A FWW TO AMBULATE AT HOME. HR IS TACHY AND IRREGULAR. PT DENIES CHEST PAIN/SOB. LEFT KNEE IS SWOLLEN AND PAINFUL. PT MOBILITY IS LIMITED. BED SHEET TO XFER. 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 PT STATES HE WAS STARTING ON HOSPICE TODAY WHEN HOSPICE NURSE CALLED FOR AMBULANCE. PT HAD DISLODGED NEPHROSTOMY, EXPERIENCING INCREASED WEAKNESS, AND RUNNING FEVER. [facility]/ED RN REPORTED PT REFUSED DOSE OF WARFARIN BUT DID TAKE TOPROLOL. PT REPORTED TO THIS RN THAT HE STOPPED TAKING WARFARIN 6 MONTHS AGO. HE IS ADAMANT HE WILL NOT TAKE THIS MED. EDUCATED PT ON REASON FOR MED DUE TO IRREGULAR HR. PT AWARE. NEW ORDER FOR TELE MONITOR--PT REFUSED. THE PT REAFFIRMED HE WANTS TO CONTINUE WITH HOSPICE BUT ALSO WANTS TO KNOW WHY HE HAS A FEVER. PT REPORTS HIS HAD A STROKE 10 DAYS AGO AND IS IN SNF. HIS SON IS HIS ONLY CAREGIVER (SON LOST 2 YEARS AGO). PT THINKS SON IS DOING THE BEST HE CAN TO CARE FOR HIM. PT EXRESSED HE WANTS LIMITED CARE AND WANTS TO BE IN CONTROL OF HIS CARE. PT ALSO HAD ORDER FOR CONTINUOUS BOX. PT DOES NOT REQUIRE OXYGEN. PT ALSO DID NOT WANT. PHONE CALL TO SENIOR JAVA PROGRAMMER/DR BO. REPORTED CURRENT CONCERNS FOR PT INCLUDING REFUSAL OF INTERVENTIONS AND STAGE 2 HEALING PU TO COCCYX. NEW ORDER TO DC TELE, CONT BIOX, WARFARIN, WOUND ORDERS, SPEECH AND PALLIATIVE CARE. PT IS INCONT OF BOWEL AND BLADDER. PT HAVING LOOSE DARK STOOLS MULTPLE TIMES SINCE ADMIT. PT HAS LIMITED SENSATION TO GROIN AREA AND NOT ALWAYS ABLE TO TELL WHEN HE HAS TO VOID OR WHEN HE IS SOILED. INCONTINCE IS FREQUENT. REGULAR INTERVAL ROUNDING COMPLETED. FACE SHEET FAXED TO DR COATS OFFICE FOR CONSULT R/T DISLODGES NEPH TUBE. PT IS STATING HE DOES NOT WANT THE NEPH TUBE--HE FEELS IT IS DIFFICULT TO CARE FOR AND A HINDRANCE. EDUCATED PT ON REASON FOR NEPH TUBE. PT AGREEABLE TO KEEPING CONSULT WITH DR RAMOS.
[2023-06-22 04:57] LABS: BASOPHILS ABSOLUTE AUTO 0.03 K/mm3 (0.00-0.23); BASOPHILS PERCENT AUTO 0 % (0-2); EOSINOPHILS ABSOLUTE AUTO 0.01 K/mm3 (0.00-0.68); EOSINOPHILS PERCENT AUTO 0 % (0-6); Hematocrit 38.5 % (37.0-53.0); Hemoglobin 12.5 g/dL (13.5-17.5); IMMATURE GRAN ABSOLUTE AUTO 0.09 K/mm3 (0.00-0.10); IMMATURE GRAN PERCENT AUTO 1 % (0-1); LYMPHOCYTES ABSOLUTE AUTO 1.94 K/mm3 (0.84-5.20); LYMPHOCYTES PERCENT AUTO 11 % (21-46); MONOCYTES ABSOLUTE AUTO 1.66 K/mm3 (0.16-1.47); MONOCYTES PERCENT AUTO 10 % (4-13); Mean Corpuscular HGB 28.7 pg (26.0-34.0); Mean Corpuscular HGB Conc 32.5 g/dL (31.5-36.5); Mean Corpuscular Volume 89 fL (80-100); Mean Platelet Volume 10.7 fL (9.1-12.4); NEUTROPHILS ABSOLUTE AUTO 13.75 K/mm3 (1.96-9.15); NEUTROPHILS PERCENT AUTO 79 % (41-73); Platelet Count 252 K/mm3 (150-400); RDW Coefficient Variation 16.3 % (11.7-14.2); RDW Standard Deviation 52.8 fL (35.1-46.3); Red Blood Cell Count 4.35 M/mm3 (4.30-5.90); White Blood Cell Count 17.48 K/mm3 (4.00-11.30)
[2023-06-22 05:16] LABS: Albumin, Blood 2.8 g/dL (3.4-5.0); Albumin/Globulin Ratio 0.7 (0.8-1.8); Bilirubin, Total 1.2 mg/dL (0.1-1.0); Bun/Creatinine Ratio 20.8 (12.0-20.0); Calcium, Blood 8.8 mg/dL (8.5-10.1); Creatinine, Blood 1.01 mg/dL (0.60-1.20); Magnesium, Blood 1.9 mg/dL (1.6-2.4); Potassium, Blood 3.8 mmol/L (3.5-5.5); Total Protein, Blood 6.8 g/dL (6.4-8.2)
[2023-06-22] MEDS ORDERED: Acetaminophen 325 MG TABLET PO PRN (05:20)
[2023-06-22] MEDS ORDERED: FentaNYL Citrate 50 MCG/ML 2 ML Injection IV PRN (05:20)
[2023-06-22 07:17] VITALS: BP 125/93
[2023-06-22] MEDS ORDERED: Cholecalciferol 1000 Unit Tablet (=25MCG) PO SCH (09:00)
[2023-06-22] MEDS ORDERED: Levodopa/Carbidopa 100 / 25 MG Tab PO SCH (09:00)
--- NOTE | 2023-06-22 14:58 | NUR ---
Physician called to review plan of care with patient and risks and benefits. Goal Is to get him a dischareg plan that is viable and with less risk of failure. Pt has infection and obstrucive disease processs. This may be difficult to manage from home on hospice. Met with pt to review suggested plan. He is having a little pain at this point but tolerable. He feels very cold and complains of shivers. Reenforeced the goal to get him home on hospice. Advised that we want him to have quality time with loved ones and comfort and debbie in his process. Advised that Interventioal radiology may cal lble to offer a palliative intervention and Iv fluid and antibiotics may enhance. comfort. Reviewed it very carefully and presented the hospe of a better hospice experice and comfort at home. pt agreed to take the antibiotics and consider intervention after speaking with the doctor. Will update family. Pt will speak wiht them also.
[2023-06-22 15:07] VITALS: BP 131/93
[2023-06-22] MEDS ORDERED: Warfarin Sodium 2.5 MG Tab PO SCH (18:00)
[2023-06-22] MEDS ORDERED: NS 1,000 ML IV SCH (18:00)
[2023-06-22 21:19] VITALS: BP 100/71
[2023-06-23] MEDS ORDERED: Vancomycin HCL 1,000 MG in NS 100 ML IV SCH (03:00)
[2023-06-23 04:20] VITALS: BP 126/88
[2023-06-23 04:56] LABS: BASOPHILS ABSOLUTE AUTO 0.03 K/mm3 (0.00-0.23); BASOPHILS PERCENT AUTO 0 % (0-2); EOSINOPHILS ABSOLUTE AUTO 0.06 K/mm3 (0.00-0.68); EOSINOPHILS PERCENT AUTO 0 % (0-6); Hematocrit 35.7 % (37.0-53.0); Hemoglobin 11.5 g/dL (13.5-17.5); IMMATURE GRAN ABSOLUTE AUTO 0.08 K/mm3 (0.00-0.10); IMMATURE GRAN PERCENT AUTO 1 % (0-1); LYMPHOCYTES ABSOLUTE AUTO 1.55 K/mm3 (0.84-5.20); LYMPHOCYTES PERCENT AUTO 11 % (21-46); MONOCYTES ABSOLUTE AUTO 1.07 K/mm3 (0.16-1.47); MONOCYTES PERCENT AUTO 8 % (4-13); Mean Corpuscular HGB 28.8 pg (26.0-34.0); Mean Corpuscular HGB Conc 32.2 g/dL (31.5-36.5); Mean Corpuscular Volume 89 fL (80-100); Mean Platelet Volume 10.7 fL (9.1-12.4); NEUTROPHILS ABSOLUTE AUTO 11.19 K/mm3 (1.96-9.15); NEUTROPHILS PERCENT AUTO 80 % (41-73); Platelet Count 232 K/mm3 (150-400); RDW Coefficient Variation 16.4 % (11.7-14.2); RDW Standard Deviation 53.2 fL (35.1-46.3); White Blood Cell Count 13.98 K/mm3 (4.00-11.30)
[2023-06-23 05:10] LABS: International Normalized Ratio 1.12; Prothrombin Time Results 11.9 Sec (9.7-11.5)
[2023-06-23 05:35] LABS: Alanine Aminotransfer (ALT/SGP <6 U/L (12-78); Albumin, Blood 2.5 g/dL (3.4-5.0); Albumin/Globulin Ratio 0.6 (0.8-1.8); Alk Phos 88 U/L (50-136); Anion Gap 11 mmol/L (3-11); Aspartate Aminotrans (AST/SGOT 15 U/L (12-37); Bilirubin, Total 1.2 mg/dL (0.1-1.0); Blood Urea Nitrogen 22 mg/dL (8-24); Bun/Creatinine Ratio 20.4 (12.0-20.0); CO2, Blood 21 mmol/L (21-32); Calcium, Blood 8.3 mg/dL (8.5-10.1); Chloride, Blood 107 mmol/L (98-108); Creatinine, Blood 1.08 mg/dL (0.60-1.20); Globulin, Blood 3.9 g/dL (2.2-4.0); Glomerular Filtration Rate 68 (60-); Glucose, Blood 95 mg/dL (70-99); Potassium, Blood 3.9 mmol/L (3.5-5.5); Sodium, Blood 135 mmol/L (136-145); Total Protein, Blood 6.4 g/dL (6.4-8.2)
[2023-06-23 07:14] VITALS: BP 126/93
[2023-06-23 15:00] VITALS: BP 108/73
[2023-06-23 15:07] LABS: Vancomycin, Trough 16.9 ug/mL (5.0-10.0)
--- NOTE | 2023-06-23 16:49 | NUR ---
REPORT RECEIVED VERIFIED PT A/O X3 WANTING TO GO HOME NOW ON HOSPICE. CASE MANAGEMNT DEALING WITH THE SPECIFICS BUT I EXPLAINED TO PT THAT MOSTLIKLY HE WOULD NOT LEAVE TODAY BUT TOMORROW, AND PT OK WITH THAT FOR NOW. PT HAVING FREQUENT STOOLS AND INC SO NEEDS TO BE CHANGED OFTEN, PT MAKES NEEDS KNOWN.
[2023-06-23 19:30] VITALS: BP 127/107
[2023-06-24] MEDS ORDERED: NS 250 ML IV PRN (04:05)
[2023-06-24 04:56] LABS: BASOPHILS ABSOLUTE AUTO 0.03 K/mm3 (0.00-0.23); BASOPHILS PERCENT AUTO 0 % (0-2); EOSINOPHILS ABSOLUTE AUTO 0.09 K/mm3 (0.00-0.68); EOSINOPHILS PERCENT AUTO 1 % (0-6); Hematocrit 37.6 % (37.0-53.0); Hemoglobin 12.1 g/dL (13.5-17.5); IMMATURE GRAN ABSOLUTE AUTO 0.13 K/mm3 (0.00-0.10); IMMATURE GRAN PERCENT AUTO 1 % (0-1); LYMPHOCYTES ABSOLUTE AUTO 1.82 K/mm3 (0.84-5.20); LYMPHOCYTES PERCENT AUTO 14 % (21-46); MONOCYTES ABSOLUTE AUTO 1.14 K/mm3 (0.16-1.47); MONOCYTES PERCENT AUTO 9 % (4-13); Mean Corpuscular HGB 28.7 pg (26.0-34.0); Mean Corpuscular HGB Conc 32.2 g/dL (31.5-36.5); Mean Corpuscular Volume 89 fL (80-100); Mean Platelet Volume 10.3 fL (9.1-12.4); NEUTROPHILS ABSOLUTE AUTO 10.21 K/mm3 (1.96-9.15); NEUTROPHILS PERCENT AUTO 76 % (41-73); Platelet Count 248 K/mm3 (150-400); RDW Coefficient Variation 16.1 % (11.7-14.2); Red Blood Cell Count 4.21 M/mm3 (4.30-5.90); White Blood Cell Count 13.42 K/mm3 (4.00-11.30)
[2023-06-24 05:22] VITALS: BP 127/97
--- NOTE | 2023-06-24 06:14 | NUR ---
SHIFT SUMMARY PT A&OX3-4 AND ANSWERS QUESTIONS APPROPRIATELY. PT IV WAS REPLACED AND VANCOMYCIN INFUSED VIA IV. VSS, NO COMPLAINTS OF CP OR SOB. PT SPENT MOST OF SHIFT WITH EYES CLOSED AND RESPIRATIONS E/U. NO ACUTE EVENTS AT THIS TIME. PROPER FALL PRECAUTIONS IN PLACE AND CALL LIGHT IN REACH.
[2023-06-24 06:31] LABS: Alanine Aminotransfer (ALT/SGP <6 U/L (12-78); Albumin, Blood 2.4 g/dL (3.4-5.0); Albumin/Globulin Ratio 0.6 (0.8-1.8); Alk Phos 112 U/L (50-136); Anion Gap 8 mmol/L (3-11); Aspartate Aminotrans (AST/SGOT 20 U/L (12-37); Bilirubin, Total 1.2 mg/dL (0.1-1.0); Blood Urea Nitrogen 18 mg/dL (8-24); Bun/Creatinine Ratio 17.5 (12.0-20.0); CO2, Blood 24 mmol/L (21-32); Calcium, Blood 9.1 mg/dL (8.5-10.1); Chloride, Blood 107 mmol/L (98-108); Creatinine, Blood 1.03 mg/dL (0.60-1.20); Globulin, Blood 4.1 g/dL (2.2-4.0); Glomerular Filtration Rate 72 (60-); Glucose, Blood 111 mg/dL (70-99); Potassium, Blood 3.9 mmol/L (3.5-5.5); Sodium, Blood 135 mmol/L (136-145); Total Protein, Blood 6.5 g/dL (6.4-8.2)
[2023-06-24 07:10] VITALS: BP 120/78
--- NOTE | 2023-06-24 12:33 | NUR ---
REPORT RECEIVED VERIFEID PT TO BE DISCHARGED TODAY. PT DOING VERY WELL AND HAPPY TO BE GOING HOME ON HOSPICE. PT GIVEN A BEDBATH, IV DCED. GURNEY TRANSFER HERE TO TAKE PT. 1130 PT TAKEN VIA GURNEY TO HOME. HOSPICE WILL SEE PT TODAY.
== END 2023-06-24 11:30 | disposition hospice, home (50) | DRG 872 ==
LOC: ER 16:19 → MEDS 21:58
PROVIDERS: Family Medicine; Nurse Practitioner; ADMIT Internal Medicine
DX: A41.9 Sepsis, unspecified organism (principal); N13.6 Pyonephrosis; C20 Malignant neoplasm of rectum; I48.91 Unspecified atrial fibrillation; G20.A1 Parkinson's disease without dyskinesia, without mention of fluctuations; Z66 Do not resuscitate; T83.022A Displacement of nephrostomy catheter, initial encounter; R15.9 Full incontinence of feces; Z87.891 Personal history of nicotine dependence; Z90.49 Acquired absence of other specified parts of digestive tract; Z79.899 Other long term (current) drug therapy; Z79.01 Long term (current) use of anticoagulants
CPT/HCPCS: 36415; 51701; 71046; 74177; 76770; 80053; 80202; 81001; 83605; 83735; 84145; 84484; 85025; 85610; 87040; 87077; 87086; 87147; 87186; 93005; 93010; 94760; 96361-59; 96374-59; 99283-25; 99285-25; A9270; J0696; J3370; J7030; J7050; Q9967